=== PATIENT | male | born 1980 | race Caucasian/White ===

== ENCOUNTER 2017-12-06 10:06 | Emergency (ER) | payer MEDICAID ==
[~2017-12-06] VITALS: Ht 175.3 cm; Wt 84.0 kg
[2017-12-06] MEDS ORDERED: KETOROLAC 60MG/2ML VIAL IM ONE (12:00)
[2017-12-06 12:12] VITALS: BP 144/77
== END 2017-12-06 12:14 | disposition home or self-care (01) ==
LOC: ER 10:43
DX: L02.31 Cutaneous abscess of buttock (principal)
CPT/HCPCS: 96372; 99283; J1885